=== PATIENT | male | born 1965 | race Caucasian/White ===

== ENCOUNTER 2020-04-10 07:01 | Outpatient (NON) | payer BC, SELFPAY ==
[2020-04-10 14:38] LABS: Influenza Control Positive
[2020-04-11 01:03] LABS: SARS-CoV-2 RNA PCR Negative
== END 2020-04-10 07:02 ==
LOC: ANHCOVIDDT 07:01
PROVIDERS: PCP Family Medicine; Visit Provider Family Medicine
DX: M79.10 Myalgia, unspecified site (principal); Z20.828 Contact with and (suspected) exposure to other viral communicable diseases
CPT/HCPCS: 87635; 87804; C9803; U0003

== ENCOUNTER 2021-05-04 10:58 | Outpatient (CLI) | payer BC, SELFPAY ==
--- NOTE | ~2021-05-04 | US_ITS ---
EXAMINATION: US shoulder asp inj w image RT DATE: 05/04/2021 11:56 INDICATION: Right shoulder pain. Biceps tendinitis. TECHNIQUE: A time-out was performed to verify the patient's name, date of , and procedure to b e performed. The procedure including the risks, benefits, and alternatives was discussed with the pat ient. Risks discussed included bleeding and infection. The patient understood the risks and agreed to proceed. The skin overlying the right biceps tendon sheath was prepped and draped in usual sterile fashion. Anesthetic was administered with 1% lidocaine subcutaneously. A 22 G needle was advanced u nder ultrasound guidance into the biceps tendon sheath. Injectate consisting of 1 mL 1% lidocaine an d 1 mL 80 mg/mL Depo-Medrol was instilled. The needle was removed and the entry site was cleaned and dressed. There were no immediate complications. FINDINGS: Real-time ultrasound demonstrates the needle in the right biceps tendon sheath. IMPRESSION: 1. Ultrasound-guided right biceps tendon sheath injection of local anesthetic and steroid. Reviewed, dictated and finalized at location A. LINE REPRESENTATIVES IMPRESSION: 1. Ultrasound-guided right biceps tendon sheath injection of local anesthetic a nd steroid.
== END 2021-05-04 10:59 | disposition home or self-care (01) ==
PROVIDERS: PCP Family Medicine
DX: M25.511 Pain in right shoulder (principal)
CPT/HCPCS: 20611; J1040

== ENCOUNTER 2022-01-17 13:54 | Emergency (ER) | payer BC, SELFPAY ==
--- NOTE | ~2022-01-17 | US_ITS ---
EXAMINATION: US scrotum doppler DATE: 01/17/2022 15:17 INDICATION: Left testicular pain x1 week. TECHNIQUE: Grayscale and Doppler ultrasound images of the testes were obtained. COMPARISON: 04/25/2006. FINDINGS: The right testis measures 3.7 x 2 x 3.2 cm. The left testis measures 3.7 x 2.1 x 2.8 cm. Th ere is normal vascular flow to both testes. The right epididymis contains several cysts, with normal vascular flow. The left epididymis contains several small cysts, with normal vascular flow. There is no varicocele. Moderate right and mild left hydroceles. IMPRESSION: 1. No sonographic evidence of torsion. 2. Moderate right and mild left hydroceles. Reviewed, dictated and finalized at location K.
[2022-01-17 14:01] VITALS: BP 136/80; PULSE 72; RESP 16; TEMP 37; O2SAT 99
[2022-01-17 16:18] LABS: Appearance Urine Clear (Clear); Bilirubin Urine Negative (Negative); Blood Urine Negative (Negative); Color Urine Yellow (Yellow); Glucose Urine UA Negative (Negative); Ketones Urine Negative (Negative); Leukocyte Esterase Ur Negative LEU/UL (Negative); Nitrate Urine Negative (Negative); Protein Urine Negative (Negative); Specific Grav Ur <= 1.005 (1.001-1.035); Urobilinogen Urine 0.2 mg/dL (<2.0)
[2022-01-17 16:20] LABS: Mucus Urine Rare /lpf; WBC Urine 0-3 /hpf
[2022-01-17 16:21] LABS: Add Urine Microscopic? NO
--- NOTE | 2022-01-17 16:27 | ED.GENADULT ---
HPI - General Adult General Chief complaint: Urogenital-Male Stated complaint: left testicle pain Time Seen by Provider: 01/17/22 15:28 History of Present Illness HPI narrative: Patient is a 56-year-old male who presents ER with left testicular pain. Reports its been ongoing for a week. Began after he wore some tighter fitting underwear and more smart pants that pushed up on his crotch. 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 His PCP provided him with some Levaquin which has not totally taken away the discomfort. Reports he has no concerns for sexually transmitted infection. No dysuria or urethral discharge. No swelling to the testicle. Does not believe she has a hernia. No rectal pain or diarrhea. Related Data Allergies Allergy/AdvReac Type Severity Reaction Status Date / Time oxycodone Allergy Severe Hives Verified 05/14/19 07:14 lidocaine AdvReac Mild Other Verified 05/11/21 15:43 Review of Systems Review of Systems: All systems reviewed & are unremarkable except as noted in HPI and below Gastrointestinal: Gastrointestinal: Denies abdominal pain, Denies diarrhea, Denies nausea and Denies vomiting Genitourinary: Genitourinary: Denies dysuria, Denies penile discharge, Reports testicular pain and Denies urinary frequency [facility] Past Medical History Medical History (Updated 01/17/22 @ 16:31 by Toni Tipton MD) Abnormal fasting glucose glucose 121 with hemoglobin A1c 5.8 on 05/03/2021 Actinic keratosis Acute bronchitis Acute non-recurrent maxillary sinusitis (~09/29/21) Acute pain of right shoulder BMI 32.0-32.9,adult BMI 33.0-33.9,adult Chest pain Chronic right shoulder pain COVID-19 (~08/2021) Elevated liver enzymes Encounter for prostate cancer screening PSA 0.9 on 05/03/2021 Essential (primary) hypertension Hypogonadism in male total testosterone 230 with free testosterone 48.6 on 05/03/2021 Male erectile dysfunction, unspecified Mixed hyperlipidemia Myalgia Nausea and vomiting Obesity (BMI 30.0-34.9) Pharyngitis Rash and nonspecific skin eruption Recurrent oral herpes simplex Seasonal allergic rhinitis UTI (urinary tract infection) Urinalysis and urine culture were negative on 01/06/2022. Vitamin D insufficiency level normal at 46 on 05/03/2021 Social History Social History Smoking status: Never smoker Alcohol intake: current Substance use: never Substance use type: does not use Exam Narrative: GENERAL: Well-appearing, well-nourished, and in no acute distress. HEAD: Normocephalic, atraumatic. : Normal-appearing external genitalia without urethral discharge or lesions along the penile shaft. Testicles normal in lie and size. No tenderness to the testicles or spermatic cord. No inguinal hernia noted bilaterally. EXTREMITIES: Normal range of motion. No edema. SKIN: Warm, dry, no rash. NEURO: Alert and oriented x3. PSYCH: Normal mood and affect. Course Course Emergency Course: Recommend anti-inflammatory medication and rest. Follow-up with urology if symptoms persist. Vital Signs Vital signs: Vital Signs Temperature 98.6 F 01/17/22 14:01 Pulse Rate 72 01/17/22 14:01 Respiratory Rate 16 01/17/22 14:01 Blood Pressure 136/80 01/17/22 14:01 Pulse Oximetry 99 01/17/22 14:01 Oxygen Delivery Room Air 01/17/22 14:01 Temperature 98.6 F 01/17/22 14:01 Pulse Rate 72 01/17/22 14:01 Respiratory Rate 16 01/17/22 14:01 Blood Pressure 136/80 01/17/22 14:01 Pulse Oximetry 99 01/17/22 14:01 Oxygen Delivery Room Air 01/17/22 14:01 Medical Decision Making Vital Signs Vital Signs: Vital Signs Temperature 98.6 F 01/17/22 14:01 Pulse Rate 72 01/17/22 14:01 Respiratory Rate 16 01/17/22 14:01 Blood Pressure 136/80 01/17/22 14:01 Pulse Oximetry 99 01/17/22 14:01 Oxygen Delivery Room Air 01/17/22 14:01 Temperature 98.6 F 01/17/22 14:01 Pulse Rate 72 01/17/
[2022-01-17 16:38] VITALS: BP 139/86; PULSE 88; RESP 16; O2SAT 99
== END 2022-01-17 16:39 | disposition home or self-care (01) ==
PROVIDERS: Emergency Provider Emergency Medicine; PCP Family Medicine
DX: N50.812 Left testicular pain (principal); Z86.16 Personal history of COVID-19; I10 Essential (primary) hypertension
CPT/HCPCS: 76870; 81003; 93976; 99284

== ENCOUNTER → 2025-03-26 14:59 | Outpatient (CLI) | payer BC, OTHER, SELFPAY ==
--- OUTSIDE RECORDS SUMMARY | 2008-09-09 09:15 | XMS_ITS | Continuity of Care Document ---
Author Organization [facility] Address [address] [place] [address] [facility] [address] [place] [address] Phone Care Team Providers Care Produce Runner Name Role Phone Nunez OD, Aryan Unavailable Unavailable Procedures Procedure Date Eye Exam & Treatment Refraction Advance Directives Directive Yes / No Effective Date File Name No Information Encounters Encounter Description Practice Location Reason(s) For Visit Diagnoses Date Provider Providers Copied on Encounter [facility], [address] [place] [address] [address], [place], [place], [id number], [place] tel:[phone] SEC [facility] No Information [phone] Nunez OD Aryan. [address] [facility] , [address], [place], [address], [place]. tel:[phone] Family History Family Member Type Diagnosis Age At Onset No Information Payers Payer name Insurance type Covered republican ID Authoriza tion(s) No Information Social History Type Description Quantity Date Captured Comments Sex Male Smoking Status No Information Chief Complaint And Reason For Visit No Information Reason For Referral Reason For Referral No Information History Of Present Illness Encounter Date Complaint History Of Prese nt Illness No Information Functional Status Date Functional Assessmen t No Information Instructions Date Instruction Additional Infor mation No Information Assessments Type Assessment Date No Information Patient Care Teams Name Effective Dates (start - stop) Status Members No Information
--- NOTE | ~2025-03-26 | XR_ITS ---
EXAMINATION: XR foot LT min 3V, 03/26/2025 15:02 CDT HISTORY: M72.2 - Plantar fascial fibromatosis COMPARISON: No comparisons available. Findings: No acute fracture or malalignment. No significant degenerative changes. Soft tissues unremarkable. Impression: No acute fracture or malalignment. Reviewed, dictated and finalized at location P. Impression: No acute fracture or malalignment.
--- OUTSIDE RECORDS SUMMARY | 2025-03-26 17:04 | XMS_ITS | Encounter Summary ---
Author Organization [facility] Address 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
--- OUTSIDE RECORDS SUMMARY | 2025-03-26 17:04 | XMS_ITS | Encounter Summary ---
Author Organization [facility] Address 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
--- OUTSIDE RECORDS SUMMARY | 2025-03-26 17:04 | XMS_ITS | Encounter Summary ---
Author Organization [facility] Address 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
--- OUTSIDE RECORDS SUMMARY | 2025-03-26 17:04 | XMS_ITS | Encounter Summary ---
Author Organization [facility] Address [address] [place] [address] Care Team Providers Care Slag Expander Name Role Phone Jose Alfredo Luna MD Primary Care Provider [phone] Encounter Details Date Type Department Care Team (Late st Contact Info) Description 11/19/[address] 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
--- OUTSIDE RECORDS SUMMARY | 2025-03-26 17:04 | XMS_ITS | Encounter Summary ---
Author Organization [facility] Address [address] [place] [address] Care Team Providers Care Chief Of Staff Doctor Name Role Phone Jose Alfredo Luna MD Primary Care Provider [phone] Encounter Details Date Type Department Care Team (Late st Contact Info) Description 12/08/2004 Outpatient Historical 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
--- OUTSIDE RECORDS SUMMARY | 2025-03-26 17:04 | XMS_ITS | Encounter Summary ---
Author Organization [facility] Address 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
--- OUTSIDE RECORDS SUMMARY | 2025-03-26 17:04 | XMS_ITS | Encounter Summary ---
Author Organization [facility] Address 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
--- OUTSIDE RECORDS SUMMARY | 2025-03-26 17:04 | XMS_ITS | Encounter Summary ---
Author Organization [facility] Address 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
--- OUTSIDE RECORDS SUMMARY | 2025-03-26 17:04 | XMS_ITS | Encounter Summary ---
Author Organization [facility] Address 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
--- OUTSIDE RECORDS SUMMARY | 2025-03-26 17:04 | XMS_ITS | Encounter Summary ---
Author Organization [facility] Address [address] [place] [address] Care Team Providers Care Wash Barrel Leader Name Role Phone Jose Alfredo Luna MD Primary Care Provider [phone] Encounter Details Date Type Department Care Team (Late st Contact Info) Description 01/23/[address] 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
--- OUTSIDE RECORDS SUMMARY | 2025-03-26 17:04 | XMS_ITS | Encounter Summary ---
Author Organization [facility] Address 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
--- OUTSIDE RECORDS SUMMARY | 2025-03-26 17:04 | XMS_ITS | Encounter Summary ---
Author Organization [facility] Address 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
--- OUTSIDE RECORDS SUMMARY | 2025-03-26 17:04 | XMS_ITS | Encounter Summary ---
Author Organization [facility] Address 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
--- OUTSIDE RECORDS SUMMARY | 2025-03-26 17:04 | XMS_ITS | Encounter Summary ---
Author Organization [facility] Address 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
--- OUTSIDE RECORDS SUMMARY | 2025-03-26 17:04 | XMS_ITS | Encounter Summary ---
Author Organization [facility] Address [address] [place] [address] Care Team Providers Care Jive Developer Name Role Phone Jose Alfredo Luna MD Primary Care Provider [phone] Encounter Details Date Type Department Care Team (Late st Contact Info) Description 12/31/2003 Outpatient Historical 

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
--- OUTSIDE RECORDS SUMMARY | 2025-03-26 17:04 | XMS_ITS | Encounter Summary ---
Author Organization [facility] Address 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
--- OUTSIDE RECORDS SUMMARY | 2025-03-26 17:04 | XMS_ITS | Encounter Summary ---
Author Organization [employer] Address 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
--- OUTSIDE RECORDS SUMMARY | 2025-03-26 17:04 | XMS_ITS | Encounter Summary ---
Author Organization [facility] Address 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
--- OUTSIDE RECORDS SUMMARY | 2025-03-26 17:04 | XMS_ITS | Encounter Summary ---
Author Organization [facility] Address [address] [place] [address] Care Team Providers Care Pesticide Control Inspector Name Role Phone Jose Alfredo Luna MD Primary Care Provider [phone] Encounter Details Date Type Department Care Team (Late st Contact Info) Description 06/18/[address] 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
--- OUTSIDE RECORDS SUMMARY | 2025-03-26 17:04 | XMS_ITS | Encounter Summary ---
Author Organization [facility] Address [address] [place] [address] Care Team Providers Care Sleeve Setter Lockstitch Name Role Phone Jose Alfredo Luna MD Primary Care Provider [phone] Encounter Details Date Type Department Care Team (Late st Contact Info) Description 09/10/2003 Outpatient Historical [facility] [address] [phone] Jose Alfredo Luna MD [address] [phone] Social History Tobacco Use Types Packs/Day Years Used Date Smoking Tobacco: Never Assessed Sex and Gender Information Value Date Recorded Sex Assigned at Not on file 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
--- OUTSIDE RECORDS SUMMARY | 2025-03-26 17:04 | XMS_ITS | Encounter Summary ---
Author Organization [facility] Address [address] [place] [address] Care Team Providers Care Sequencing Machine Operator Name Role Phone Jose Alfredo Luna MD Primary Care Provider [phone] Encounter Details Date Type Department Care Team (Late st Contact Info) Description 03/01/2005 Outpatient Historical [facility] [address] [place] [address] Isabell Lundberg MD [address] [facility] [address] [place] [phone] Social History Tobacco Use Types Packs/Day Years Used Date Smoking Tobacco: Never Assessed Sex and Gender Information Value Date Recorded Sex Assigned at Not on file 

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
--- OUTSIDE RECORDS SUMMARY | 2025-03-26 17:04 | XMS_ITS | Encounter Summary ---
Author Organization [facility] Address [address] [place] [address] Care Team Providers Care Desulfurizer Operator Name Role Phone Jose Alfredo Luna MD Primary Care Provider [phone] Encounter Details Date Type Department Care Team (Late st Contact Info) Description 10/15/2003 Outpatient Historical [facility] [address] [phone] Jose Alfredo Luna MD [address] [phone] Social History Tobacco Use Types Packs/Day Years Used Date Smoking Tobacco: Never Assessed Sex and Gender Information Value Date Recorded Sex Assigned at Not on file Legal Sex Male 5:02 AM COMPENSATION/BENEFITS SPECIALIST Gender Identity Not on file Sexual Orientation Not on file documented as of this encounter Plan of Treatment Not on file documented as of this encounter Visit Diagnoses Not on filedocumented in this encounter Care Teams Desulfurizer Operator Relationship Specialty Start Date End Date Jose Alfredo Luna MD [address] [address] PCP - General 01/15/03 documented as of this encounter
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
--- OUTSIDE RECORDS SUMMARY | 2025-03-26 17:05 | XMS_ITS | Encounter Summary ---
Author Organization [facility] Address [address] [place] [address] Care Team Providers Care Book Store Associate Name Role Phone Jose Alfredo Luna MD Primary Care Provider [phone] Encounter Details Date Type Department Care Team (Late st Contact Info) Description 01/29/2003 Outpatient Historical [facility] [address] [phone] Jose Alfredo Luna MD [address] [phone] Social History Tobacco Use Types Packs/Day Years Used Date Smoking Tobacco: Never Assessed Sex and Gender Information Value Date Recorded Sex Assigned at Not on file Legal Sex Male 5:02 AM 

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
--- OUTSIDE RECORDS SUMMARY | 2025-03-26 17:05 | XMS_ITS | Encounter Summary ---
Author Organization [employer] Address 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
--- OUTSIDE RECORDS SUMMARY | 2025-03-26 17:05 | XMS_ITS | Encounter Summary ---
Author Organization [facility] Address [address] [place] [address] Care Team Providers Care Section Leader Name Role Phone Jose Alfredo Luna MD Primary Care Provider [phone] Encounter Details Date Type Department Care Team (Latest Contact Info) Description 10/15/2008 Outpatient Historical [facility] [address] [place] [address] Jose Alfredo Luna MD [address] [address] Encounter for Occupational Therapy (Primary Dx) Social History Tobacco Use Types Packs/Day Years Used Date Smoking Tobacco: Never Alcohol Use Standard Drinks/Week Comments No 0 (1 standard drink = 0.6 oz pur e alcohol) Sex and Gender Information Value Date Recorded Sex Assigned at Not on file 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
--- OUTSIDE RECORDS SUMMARY | 2025-03-26 17:05 | XMS_ITS | Encounter Summary ---
Author Organization [facility] Address 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
--- OUTSIDE RECORDS SUMMARY | 2025-03-26 17:05 | XMS_ITS | Encounter Summary ---
Author Organization [facility] Address 

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
--- OUTSIDE RECORDS SUMMARY | 2025-03-26 17:05 | XMS_ITS | Encounter Summary ---
Author Organization [facility] Address [address] [place] [address] Care Team Providers Care Post Tronic Machine Operator Name Role Phone Jose Alfredo Luna MD Primary Care Provider Encounter Details Date Type Department Care Team (Late st Contact Info) Description 01/01/2003 Outpatient Historical [facility] [address] [phone] Jose Alfredo Luna MD [address] [id number] Social History Tobacco Use Types Packs/Day Years Used Date Smoking Tobacco: Never Assessed Sex and Gender Information Value Date Recorded Sex Assigned at Not on file Legal Sex Male 5:02 AM DIRECT SUPPORT SPECIALIST Gender Identity Not on file Sexual Orientation Not on file documented as of this encounter Plan of Treatment Not on file documented as of this encounter Visit Diagnoses Not on filedocumented in this encounter Care Teams Post Tronic Machine Operator Relationship Specialty Start Date End Date Jose Alfredo Luna MD [address] [address] PCP - General 01/15/03 documented as of this encounter
--- OUTSIDE RECORDS SUMMARY | 2025-03-26 17:05 | XMS_ITS | Encounter Summary ---
Author Organization [facility] Address [address] [place] [address] Care Team Providers Care Regulatory Affairs Portfolio Leader Name Role Phone Jose Alfredo Luna MD Primary Care Provider [phone] Encounter Details Date Type Department Care Team (Late st Contact Info) Description 01/15/2003 Outpatient Historical [facility] [address] [phone] Jose Alfredo Luna MD [address] [id number] Social History Tobacco Use Types Packs/Day Years Used Date Smoking Tobacco: Never Assessed Sex and Gender Information Value Date Recorded Sex Assigned at Not on file Legal Sex Male 5:02 AM PROOF PLATE MAKER Gender Identity Not on file Sexual Orientation Not on file documented as of this encounter Plan of Treatment Not on file documented as of this encounter Visit Diagnoses Not on filedocumented in this encounter Care Teams Regulatory Affairs Portfolio Leader Relationship Specialty Start Date End Date Jose Alfredo Luna MD [address] [address] PCP - General 01/15/03 documented as of this encounter
--- OUTSIDE RECORDS SUMMARY | 2025-03-26 17:05 | XMS_ITS | Encounter Summary ---
Author Organization [facility] Address 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
--- OUTSIDE RECORDS SUMMARY | 2025-03-26 17:05 | XMS_ITS | Encounter Summary ---
Author Organization [facility] Address 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
--- OUTSIDE RECORDS SUMMARY | 2025-03-26 17:05 | XMS_ITS | Encounter Summary ---
Author Organization [facility] Address 

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
--- OUTSIDE RECORDS SUMMARY | 2025-03-26 17:05 | XMS_ITS | Encounter Summary ---
Author Organization [facility] Address 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
--- OUTSIDE RECORDS SUMMARY | 2025-03-26 17:05 | XMS_ITS | Encounter Summary ---
Author Organization [facility] Address 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
--- OUTSIDE RECORDS SUMMARY | 2025-03-26 17:05 | XMS_ITS | Encounter Summary ---
Author Organization [facility] Address 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
--- OUTSIDE RECORDS SUMMARY | 2025-03-26 17:05 | XMS_ITS | Encounter Summary ---
Author Organization [facility] Address 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
--- OUTSIDE RECORDS SUMMARY | 2025-03-26 17:05 | XMS_ITS | Encounter Summary ---
Author Organization [facility] Address 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
--- OUTSIDE RECORDS SUMMARY | 2025-03-26 17:05 | XMS_ITS | Encounter Summary ---
Author Organization [facility] Address 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
--- OUTSIDE RECORDS SUMMARY | 2025-03-26 17:05 | XMS_ITS | Encounter Summary ---
Author Organization [facility] Address 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
--- OUTSIDE RECORDS SUMMARY | 2025-03-26 17:05 | XMS_ITS | Encounter Summary ---
Author Organization [facility] Address 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
--- OUTSIDE RECORDS SUMMARY | 2025-03-26 17:05 | XMS_ITS | Encounter Summary ---
Author Organization [facility] Address 

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
--- OUTSIDE RECORDS SUMMARY | 2025-03-26 17:05 | XMS_ITS | Encounter Summary ---
Author Organization [facility] Address 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
--- OUTSIDE RECORDS SUMMARY | 2025-03-26 17:05 | XMS_ITS | Encounter Summary ---
Author Organization [facility] Address [address] [place] [address] Care Team Providers Care Photographic Engineer Name Role Phone Jose Alfredo Luna MD Primary Care Provider [phone] Encounter Details Date Type Department Care Team (Late st Contact Info) Description 12/13/2002 Outpatient Historical [facility] Support [facility]. 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
== END ==
LOC: EXPTRAD 15:02
PROVIDERS: PCP Family Medicine; Referring Provider Family Medicine; Visit Provider Family Medicine
DX: M72.2 Plantar fascial fibromatosis (principal)
CPT/HCPCS: 73630